=== PATIENT | female | born 1995 | race Caucasian/White ===

== ENCOUNTER 2016-08-29 07:37 | Emergency (ER) | payer BC ==
[2016-08-29] MEDS ORDERED: ONDANSETRON HCL 4 MG/2 ML VIAL ONE (08:46)
[2016-08-29] MEDS ORDERED: KETOROLAC TROMETHAMINE 30 MG/ML VIAL ONE (08:46)
[2016-08-29] MEDS ORDERED: ACETAMINOPHEN 325 MG TABLET PO ONE (09:00)
[2016-08-29 09:08] LABS: ALBUMIN 4.9 g/dL (3.5-5.0); ALKALINE PHOSPHATASE 88 U/L (38-126); ALT 38 U/L (9-52); AST 32 U/L (14-36); BILIRUBIN, DIRECT 0.2 mg/dL (0.0-0.4); BILIRUBIN, TOTAL 1.3 mg/dL (0.2-1.3); BLOOD UREA NITROGEN 14 mg/dL (7-17); CALCIUM 9.6 mg/dL (8.4-10.2); CHLORIDE 100 mmol/L (98-107); EST GLOMERULAR FILTRATION RATE > 60 mL/min; GLUCOSE 79 mg/dL (70-100); LIPASE 17 U/L (23-300); POTASSIUM 3.9 mmol/L (3.5-5.1); SODIUM 141 mmol/L (137-145); TOTAL PROTEIN 9.1 g/dL (6.3-8.2)
[2016-08-29 09:19] LABS: HEMATOCRIT 40.5 % (36.0-48.0); HEMOGLOBIN 14.3 g/dL (12.0-16.0); MEAN CELL VOLUME 94.6 fL (80.0-100.0); MEAN CORPUS. HGB CONCENTRATION 35.2 g/dL (32.0-36.0); MEAN CORPUSCULAR HEMOGLOBIN 33.3 pg (29.0-35.0); MEAN PLATELET VOLUME 8.8 fL (7.4-10.4); PLATELET COUNT 246 X 10^3uL (130-440); RED BLOOD COUNT 4.28 X 10^6uL (4.20-6.10); RED CELL DISTRIBUTION WIDTH 12.8 % (11.5-14.5); WHITE BLOOD COUNT 15.9 X 10^3uL (3.9-10.7)
[2016-08-29 09:29] LABS: BAND% (Manual) 8 % (0.0-1.0); LYMPHOCYTE % (Manual) 1 % (20.0-40.0); MONOCYTE % (Manual) 1 % (2.0-10.0); NEUTROPHIL % (Manual) 90 % (54.0-75.0); PLATELET ESTIMATE ADEQUATE
--- NOTE | 2016-08-29 13:06 | ER NURSING DOCUMENTATION ---
Nurse's Notes [facility] Name:Nory Boogie Age:21 yrs Sex:Female :1995 Arrival Date:08/29/2016 Time:07:37 Bed3 Private MD:Sergio Lemus Diagnosis:Viral Illness;Viral Pharyngitis Presentation: 08/29 07:49 Presenting complaint: Patient states: feeling achy around 8 pm with nausea and achy cb everywhere along with nasal drainage. Transition of care: Home. Notified ED Physician of patient's arrival and CC Dr. Yadav notified. 07:49 Method Of Arrival: Private Vehicle cb 07:49 Acuity: DAVID 3 cb Triage Assessment: 07:56 General: Appears ill, well groomed, Behavior is cooperative. Pain: Complains of pain in cb joints and back Pain currently is 7 out of 10 on a pain scale. EENT: Reports Sinus drainage swallowing nasal congestion. Neuro: Level of Consciousness is awake, alert, Oriented to person, place, time, event. Cardiovascular: Pulses are 2+ in right radial artery. Respiratory: Airway is patent Trachea midline Respiratory effort is even, unlabored, Respiratory pattern is regular, symmetrical. GI: Reports nausea, Parent/caregiver reports the patient having tolerance of food, tolerance of fluids, last night. : Denies burning with urination. Derm: Derm: Denies rash ot tick bites. Musculoskeletal: Reports pain in joints and back. Historical: - Allergies: No known drug Allergies; - Home Meds: 1. Remicade IV 2. azathioprine 50 mg oral tab 1 tab once daily 3. [place]-D 12 Hour Oral - PMHx: factor V Leiden ; CROHN'S; - Tetanus: < 10 years. - Ebola Screening: : Patient negative for fever greater than or equal to 101.5 degrees Fahrenheit, and additional compatible Ebola Virus Disease symptoms. Patient denies exposure to infectious person. Patient denies travel to an Ebola-affected area in the 21 days before illness onset. No symptoms or risks identified at this time. . - Immunization history: Flu Vaccine None. - Social history: Smoking status: Patient states was never smoker of tobacco. Screenin:03 Infectious Disease Risk None. Abuse screen: Denies threats or abuse. Denies injuries cb from another. Nutritional screening: No deficits noted. Assessment: 13:05 Respiratory: Airway is patent Trachea midline Respiratory effort is even, unlabored, lp Breath sounds are clear. 13:05 Derm: no rashes or tick bites. cb Vital Signs: 08:01 BP 134 / 94; Pulse 89; Resp 24; Temp 101.6; Pulse Ox 97% on R/A; Weight 49.44 kg; cb Height 4 ft. 11 in. (149.86 cm); Pain 7/10; 09:19 Pulse Ox 96% ; cb 09:32 BP 131 / 75 (auto/); cb 09:44 Pulse Ox 95% ; cb 09:45 BP 127 / 76 (auto/); cb 09:59 Pulse Ox 95% ; cb 10:00 BP 131 / 74 (auto/); cb 10:09 BP 131 / 74; Pulse 130; Resp 25; Temp 100.9(TE); Pulse Ox 93% on R/A; cb 10:14 Pulse 129 MON; Resp 30; Pulse Ox 93% ; cb 10:15 BP 122 / 70 (auto/); cb 10:29 Pulse 133 MON; Resp 35; Pulse Ox 94% ; cb 10:30 BP 124 / 70 (auto/); cb 10:44 Pulse 127 MON; Resp 26; Pulse Ox 100% ; cb 10:45 BP 122 / 74 (auto/); cb 10:59 Pulse 121 MON; Resp 24; Pulse Ox 97% ; cb 11:00 BP 129 / 77 (auto/); cb 11:14 Pulse 122 MON; Resp 28; Pulse Ox 96% ; cb 11:15 BP 129 / 82 (auto/); cb 11:30 BP 129 / 79 (auto/); cb 11:34 Pulse 120 MON; Resp 24; Pulse Ox 93% ; cb 12:21 BP 138 / 95 (auto/); cb 12:24 Pulse Ox 94% ; cb 08:01 Body Mass Index 22.02 (49.44 kg, 149.86 cm) cb ED Course: 07:38 Patient arrived in ED. ds 07:39 Sergio Lemus MD is Private Physician. ds 07:49 Amy Ayala, KARSTEN is Primary Nurse. cb 07:51 Triage completed. cb 08:25 Labs drawn. (by ED staff). Sent per order to lab. Inserted peripheral IV: 20 gauge in cb right antecubital area and blood collected. by Adrienne Zavala RN. 08:26 Daniel Yadav MD is Attending Physician. tl1 09:28 Sergio Lemus MD is Referral Physician. tl1 11:20 Assisted to bathroom. rh 13:05 Valuables Remains with patient. lp Administered Medications: 08:30 Drug: NS 0.9% 1000 ml; Route: IV; Rate: bolus; Site: right antecubital; lpr 10:00 Follow up: IV Status: Infusion continued; IV Intake: 1000ml cb 08:39 Drug: Zofran 4 mg; {Note: by Adrienne Foster RN.} Route: IVP; Infused Over: 2 mins; Site: lpr right antecubital; 11:27 Follow up: Response: Nausea is decreased cb 08:41 Drug: Toradol 15 mg; Route: IVP; Site: right antecubital; lpr 08:58 Follow up: by Adrienne Foster RN lpr 10:55 Drug: NS 0.9% 1000 ml; Route: IV; Rate: bolus; Site: right antecubital; cb 11:29 Follow up: IV Status: Completed infusion; IV Intake: 1000ml cb 11:06 CANCELLED (Other Intervention Used): Dilaudid 0.5 mg IVP once cb 12:02 Drug: Acetaminophen 975 mg; Route: PO; cb 14:00 Follow up: Response: Temperature is decreased cb Point of Care Testing: Urine Dip: 09:40 pH: 8.5; ; Specific [place]: 1.020; Ketones: Large; Glucose: Negative; Protein: lpr Positive (+); Leukocytes: Negative; Nitrite: Negative ; Blood: Negative; Bilirubin: Negative ; Urobilinogen: Normal Intake: 10:00 IV: 1000ml; Total: 1000ml. cb 11:29 IV: 1000ml; Total: 2000ml. cb Outcome: :29 Discharge ordered by . tl1 12:28 Discharged to home ambulatory, with family. cb 12:28 Condition: stable 12:28 Discharge instructions given to patient, Parent Instructed on discharge instructions, follow up and referral plans. Demonstrated understanding of instructions, medications, Prescriptions given X 2. 12:28 Discharge Assessment: Patient awake, alert and oriented x 3. No cognitive and/or cb functional deficits noted. Patient verbalized understanding of disposition instructions. 12:28 IV D/Rao cb 13:06 Patient left the ED. lp 06/14 09:29 Discharge F/U Call: Unable to reach: left voicemail: lp Signatures: Amy Ayala, RN RN Keke Mistry RN RN Trini Patino, Reg Reg Yanely Thompson RN RN lpr Leigh, Tom, MD MD tl1 Nikia Hohca [facility]
--- NOTE | 2016-08-31 13:06 | ER PHYSICIAN DOCUMENTATION ---
Physician Documentation [facility] Name:Nory Boogie Age:21 yrs Sex:Female :1995 Arrival Date:08/29/2016 Time:07:37 Bed3 Private MD:Sergio Lemus EDVicentaDaniel Disposition: 08/29 14:00 Chart complete. tl1 Disposition: 08/29/16 09:29 Discharged to Home/Self Care. Impression: Viral Illness, Viral Pharyngitis. - Condition is Good. - Discharge Instructions: PHARYNGITIS, Viral, VIRAL SYNDROME (Adult), Fever - FEVER CONTROL (Child). - Prescriptions for [place] 5- 325 mg Oral - take 1 tablet by ORAL route every 6 hours As needed; 10 tablet. Zofran 4 mg Oral Tablet - take 1 tablet by ORAL route every 12 hours; 6 tablet. - Work release form, Medical Reconciliation form form. - Follow up: Sergio Lemus MD; When: 4- 6 days; Reason: Recheck today's complaints, Continuance of care. - Problem is new. - Symptoms have improved. HPI: 07:45 This 21 yrs old Female presents to ER via Private Vehicle with complaints of tl1 Fever. 07:45 The patient reports fever, not measured (subjective), that was measured at 101.9 tl1 degrees Fahrenheit. Onset: The symptom(s)/episode began/occurred gradually, last night. She developed a sore throat 2 days ago and that has been bothering her since. Last night and this morning she is bothered by progressive malaise, fatigue, and generalized weakness and lassitude. No cough or dyspnea. No abdominal pain or diarrhea. No UTI symptoms.. Historical: - Allergies: No known drug Allergies; - Home Meds: 1. Remicade IV 2. azathioprine 50 mg oral tab 1 tab once daily 3. [place]-D 12 Hour Oral - PMHx: factor V Leiden ; CROHN'S; - Tetanus: < 10 years. - Ebola Screening: : Patient negative for fever greater than or equal to 101.5 degrees Fahrenheit, and additional compatible Ebola Virus Disease symptoms. Patient denies exposure to infectious person. Patient denies travel to an Ebola-affected area in the 21 days before illness onset. No symptoms or risks identified at this time. . - Immunization history: Flu Vaccine None. - Social history: Smoking status: Patient states was never smoker of tobacco. ROS: 08:00 Constitutional: Positive for body aches, chills, fatigue, fever, malaise, poor PO tl1 intake. 08:00 ENT: Positive for rhinorrhea, sinus congestion, sore throat, Negative for dental pain, difficulty swallowing, hoarseness. 08:00 Neck: Negative for swollen nodes. 08:00 Cardiovascular: Negative for chest pain, palpitations. 08:00 Respiratory: Negative for cough, hemoptysis, pleurisy, shortness of breath, sputum production, wheezing. 08:00 All other systems are negative. Exam: 08:00 Constitutional: The patient appears alert, awake, non-toxic, well developed, well tl1 hydrated, well groomed, well nourished, uncomfortable. 08:00 Head/face: Exam is negative for acute changes. 08:00 Eyes: Periorbital structures: appear normal, Pupils: equal, round, and reactive to light and accomodation, Conjunctiva: normal. 08:00 ENT: External ear(s): are unremarkable, Nose: is normal, Mouth: is normal, Oral mucosa: pink and intact, dry, Posterior pharynx: Tonsils: bilaterally enlarged, Uvula: midline, erythema, that is mild, exudate, is not appreciated, peritonsillar mass, . 08:00 Neck: ROM/movement: is normal, is supple, Lymph nodes: no appreciated lymphadenopathy. 08:00 Cardiovascular: Rate: tachycardic, Rhythm: regular, Heart sounds: normal, Edema: is not appreciated, JVD: is not appreciated. 08:00 Respiratory: Respirations: normal, Breath sounds: are normal. 08:00 Abdomen/GI: Inspection: abdomen appears normal, Palpation: abdomen is soft and non-tender. 08:00 Musculoskeletal/extremity: Exam is negative for acute changes. 08:00 Skin: Exam negative for acute changes. 08:00 Neuro: Exam negative for acute changes. Vital Signs: 08:01 BP 134 / 94; Pulse 89; Resp 24; Temp 101.6; Pulse Ox 97% on R/A; Weight 49.44 kg; cb Height 4 ft. 11 in. (149.86 cm); Pain 7/10; 09:19 Pulse Ox 96% ; cb 09:32 BP 131 / 75 (auto/); cb 09:44 Pulse Ox 95% ; cb 09:45 BP 127 / 76 (auto/); cb 09:59 Pulse Ox 95% ; cb 10:00 BP 131 / 74 (auto/); cb 10:09 BP 131 / 74; Pulse 130; Resp 25; Temp 100.9(TE); Pulse Ox 93% on R/A; cb 10:14 Pulse 129 MON; Resp 30; Pulse Ox 93% ; cb 10:15 BP 122 / 70 (auto/); cb 10:29 Pulse 133 MON; Resp 35; Pulse Ox 94% ; cb 10:30 BP 124 / 70 (auto/); cb 10:44 Pulse 127 MON; Resp 26; Pulse Ox 100% ; cb 10:45 BP 122 / 74 (auto/); cb 10:59 Pulse 121 MON; Resp 24; Pulse Ox 97% ; cb 11:00 BP 129 / 77 (auto/); cb 11:14 Pulse 122 MON; Resp 28; Pulse Ox 96% ; cb 11:15 BP 129 / 82 (auto/); cb 11:30 BP 129 / 79 (auto/); cb 11:34 Pulse 120 MON; Resp 24; Pulse Ox 93% ; cb 12:21 BP 138 / 95 (auto/); cb 12:24 Pulse Ox 94% ; cb 08:01 Body Mass Index 22.02 (49.44 kg, 149.86 cm) cb MDM: 08:15 Patient medically screened. tl1 10:00 Data reviewed: vital signs, nurses notes, lab test result(s), and as a result, I will tl1 discharge patient. Counseling: I had a detailed discussion with the patient and/or guardian regarding: the historical points, exam findings, and any diagnostic results supporting the discharge/admit diagnosis, lab results, the need for outpatient follow up, to return to the emergency department if symptoms worsen or persist or if there are any questions or concerns that arise at home. Medication response: The patient's symptoms have improved. ED course: She remained somewhat tachycardic even after fairly aggressive IV hydration, but she was feeling much better at the time of d/c.. 08/29 08:53 Order name: INFLUENZA A/B; Complete Time: 09:10 EDMS 08/29 09:08 Interpretation: Normal: INFLUENZA A/B INF A B NEGATIVE. 1 08/29 09:06 Order name: RAPID STREP SCRN CUL IF NEG; Complete Time: 09:10 EDMS 08/29 09:08 Interpretation: Normal: RAPID STREP SCRN CUL IF NEG NEGATIVE. 1 08/29 09:20 Order name: CBC WITHOUT A DIFFERENTIAL; Complete Time: 11:53 EDMS 08/29 09:26 Interpretation: Abnormal: WHITE BLOOD COUNT 15.9. 1 08/29 09:23 Order name: BASIC METABOLIC PANEL; Complete Time: 11:53 EDMS 08/29 09:23 Order name: HEPATIC PANEL; Complete Time: 11:53 EDMS 08/29 09:26 Interpretation: Normal Except: TOTAL PROTEIN 9.1. 1 08/29 09:23 Order name: LIPASE; Complete Time: 11:53 EDMS 08/29 09:26 Interpretation: Normal: LIPASE 17. 1 08/29 09:31 Order name: MANUAL DIFFERENTIAL; Complete Time: 11:53 EDMS 08/29 09:39 Order name: HCG, SERUM; Complete Time: 11:53 EDMS 08/29 08:27 Order name: NPO; Complete Time: 08:57 tl1 Dispensed Medications: 08:30 Drug: NS 0.9% 1000 ml; Route: IV; Rate: bolus; Site: right antecubital; lpr 10:00 Follow up: IV Status: Infusion continued; IV Intake: 1000ml cb 08:39 Drug: Zofran 4 mg; {Note: by Adrienne Foster RN.} Route: IVP; Infused Over: 2 mins; Site: lpr right antecubital; 11:27 Follow up: Response: Nausea is decreased cb 08:41 Drug: Toradol 15 mg; Route: IVP; Site: right antecubital; lpr 08:58 Follow up: by Adrienne Foster RN lpr 10:55 Drug: NS 0.9% 1000 ml; Route: IV; Rate: bolus; Site: right antecubital; cb 11:29 Follow up: IV Status: Completed infusion; IV Intake: 1000ml cb 11:06 CANCELLED (Other Intervention Used): Dilaudid 0.5 mg IVP once cb 12:02 Drug: Acetaminophen 975 mg; Route: PO; cb 14:00 Follow up: Response: Temperature is decreased cb Point of Care Testing: Urine Dip: 09:40 pH: 8.5; ; Specific [place]: 1.020; Ketones: Large; Glucose: Negative; Protein: lpr Positive (+); Leukocytes: Negative; Nitrite: Negative ; Blood: Negative; Bilirubin: Negative ; Urobilinogen: Normal Signatures: Amy Ayala, RN RN cb Keke García RN RN Yanely Metzger RN RN lpr Leigh, Tom, MD MD tl1
== END 2016-08-29 13:06 | disposition home or self-care (01) ==
LOC: ER 07:37
DX: J02.8 Acute pharyngitis due to other specified organisms (principal); B34.9 Viral infection, unspecified; E86.0 Dehydration; R00.0 Tachycardia, unspecified; M79.1 Myalgia; R53.81 Other malaise; R53.83 Other fatigue; Z79.899 Other long term (current) drug therapy
CPT/HCPCS: 80048; 80076; 83690; 84703; 85007; 85027; 86403; 87449; 96361; 96374; 96375; 99284; J1885; J2405

== ENCOUNTER 2016-08-30 11:03 | Observation (INO) | payer BC ==
[2016-08-30] MEDS ORDERED: HOME MEDICATION LIST NEEDED 1 EA EACH MC ONE (11:08)
[2016-08-30] MEDS ORDERED: IBUPROFEN SUSP 100 MG/5 ML CUP PO PRN (11:13)
[2016-08-30] MEDS ORDERED: ACETAMINOPHEN 325 MG TABLET PO PRN (11:14)
[2016-08-30] MEDS ORDERED: AZITHROMYCIN 250 MG TABLET PO ONE ×3 (11:15→12:21)
[2016-08-30] MEDS ORDERED: KETOROLAC TROMETHAMINE 30 MG/ML VIAL IV ONE (11:16)
[2016-08-30] MEDS ORDERED: KETOROLAC TROMETHAMINE 30 MG/ML VIAL ONE (11:43)
[2016-08-30] MEDS ORDERED: NORMAL SALINE FLUSH ONE (11:44)
[2016-08-30] MEDS ORDERED: NORMAL SALINE FLUSH 50 ML ONE (11:44)
[2016-08-30] MEDS ORDERED: POTASSIUM CHLORIDE/NS 20 MEQ/1,000 ML BAG IV SCH (12:00)
[2016-08-30] MEDS ORDERED: cefTRIAXone SODIUM 1,000 MG in NORMAL SALINE MINI-BAG+ 100 ML IV SCH (12:00)
[2016-08-30] MEDS ORDERED: ONDANSETRON ODT 4 MG TAB.RAPDIS ONE (12:20)
[2016-08-30] MEDS ORDERED: ENOXAPARIN SODIUM 40 MG/0.4 ML SYR SUBCUT SCH (12:30)
--- NOTE | 2016-08-30 13:27 | CT REPORT ---
HISTORY: Tachycardia. Chest pain. Factor V 5 Leiden. COMPARISON: None. TECHNIQUE: This examination was performed using automated exposure control, adjustment of mA or kV according to patient size, and/or use of iterative reconstruction technique. Axial CT imaging from the thoracic i nlet through the upper abdomen following administration of IV contrast during peak opacification of t he pulmonary arteries, multiplanar reformatted and 3-D images are evaluated. 80ml Isovue 300 contrast. FINDINGS: There is dense consolidation of the posterior superior right lower lobe. There is also dense consolid ation of the posterior inferior right middle lobe. Note is made of aberrant right subclavian artery origin. Right subclavian artery arises from the dist al aortic arch and swings behind the esophagus to continue as the right subclavian artery. There are no pleural effusions. There is good opacification of the pulmonary arterial tree to segmental branches. No evidence of acut e pulmonary emboli. Patient has evidence of a moderate reverse S thoracic scoliosis. The liver appears to be enlarged with possible fatty infiltration. IMPRESSION: 1. Dense consolidation of the right lower lobe and right middle lobe consistent with infectious pneu monia. Consider aspiration pneumonia. 2. Negative for pulmonary emboli. 3. Aberrant right subclavian artery which originates from the distal aortic arch and travels behind the esophagus to continue as the right subclavian artery. 4. Moderate reverse S thoracic scoliosis. 5. Probable enlarged liver with fatty infiltration. Final Electronic Signature: This report was electronically signed by Sergo Clement MD, FACR on 1:24 PM. [email or web address] /
[2016-08-30] MEDS ORDERED: ONDANSETRON HCL 4 MG/2 ML VIAL ONE ×2 (13:39→18:32)
[2016-08-30 13:42] LABS: URINE MUCUS NONE SEEN (Up to 25%); URINE RBC NONE SEEN (0-5/hpf); URINE WBC NONE SEEN (0-4/hpf)
[2016-08-30 13:47] LABS: URINE APPEARANCE CLEAR; URINE COLOR DARK YELLOW; URINE LEUKOCYTE ESTERASE NEGATIVE (NEGATIVE); URINE NITRITE NEGATIVE (NEGATIVE)
[2016-08-30 13:48] LABS: URINE BACTERIA NONE SEEN (<10/hpf); URINE BILIRUBIN 0.5 mg/100ml (1+) (NEGATIVE); URINE BLOOD TRACE (NEGATIVE); URINE GLUCOSE NORMAL (NEGATIVE); URINE KETONE 50mg/dL (2+) (NEGATIVE); URINE PH 6.5 (5-7); URINE PROTEIN 30mg/dL (1+) (NEG - TRACE); URINE UROBILINOGEN 0.2mg/dL (Normal) (NEG-1mg/dL)
--- NOTE | 2016-08-30 16:02 | HISTORY & PHYSICAL ---
DATE OF ADMISSION: 08/30/16 ATTENDING PHYSICIAN: Connie Marshall MD CHIEF COMPLAINT: Fever, tachycardia. 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 She was felt to have a viral syndrome and was given IV fluids and was discharged to home. She was noted to have a white count of 15,100 at that time. She was returned to the clinic today by her mother who accompanies her with complaints of ongoing illness and fever and a severe headache. Patient has an underlying very complicated medical history of Crohns disease since age 11 and is Factor V Leiden positive. She is immunocompromised taking Remicade and taking Azathioprine. In the clinic, patient was noted to have continued tachycardia in the 130 range , and had been given IV fluids in the ER with a normal heart rate and subsequently developed a high heart rate. Patient is also complaining of central chest pain with a deep breath which is mild but no shortness of breath. She has had no leg swelling. Patient has not had any mosquito bites or tick bites. 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 She has some general arthralgias. She has not had any dysuria. She denies any diarrhea. She has had a sore throat which she reports as mild today. In the Emergency Room strep screen was negative as was influenza swab. Her CBC differential was 90% neutrophils, 8% bands, 1% lymphocytes, 1% monocytes. We also ordered a monospot today, and that was negative. Given her complicated medical history and the appearance of a patient who is looking quite ill and complaining of a severe headache, I felt it safer to admit her for observation. A D-Dimer in the clinic setting was only 236 but my suspicion for potential pulmonary embolism is high and I have decided to go ahead and order a CTA of the chest. C-reactive protein done in the clinic was over 90. EKG did confirm sinus tachycardia with an otherwise normal QRS. ALLERGIES: None known. MEDICATIONS AT HOME Azathioprine 50 mg daily. Remicade infusion monthly. Ibuprofen as needed for headaches. [place] ER 180 mg daily as needed for headaches. PAST MEDICAL HISTORY 1. Patient was a normal term baby without severe childhood illness until she developed Crohns at age 11. She has not had any surgeries for her Crohns and has only been hospitalized once with a flare. 2. Seasonal allergies. 3. Seems to have recurrent headaches, which has not been officially diagnosed as migraine headaches. 4. Menstrual cycles are reported as regular and normal without particular problems and last menstrual period was approximately 3 weeks ago. SOCIAL HISTORY: She is single. She lives at home. She has 2 sisters who are twins. She is a nonsmoker, nondrinker. Denies any drug use and is not sexually active. FAMILY HISTORY: Mother has hypertension for the past year. Father is healthy. Her twin sisters are very healthy in the family. There is Crohns in a maternal uncle and a cousin and Factor V Leiden is positive in her maternal grandmother and maternal aunt. Her mother has not been tested. REVIEW OF SYSTEMS: Positive for severe headaches, some nausea, some fevers and chills, arthralgias, sore throat. Chest pain as noted above without particular shortness of breath. No abdominal pain. No diarrhea. No hematochezia or melena. Denies any leg swelling. She is not particularly weak. She is fatigued. PHYSICAL EXAMINATION VITAL SIGNS: Temperature 36.9 after Ibuprofen. Blood pressure 134/106, pulse 120 , respiratory rate 18. O2 saturation 93% on room air. GENERAL: Tearful and appears unwell. HEENT: Extraocular movements are intact. Pupils are equal, round and reactive to light. Sclera are anicteric. Oropharynx shows no lesions. Posterior pharyngeal area is swollen and mildly erythematous without exudate. NECK: No adenopathy. No jugular venous distention. No bruits. She has full range of motion without tenderness in flexion and extension and without stiffness. LUNGS: Clear bilaterally. CARDIOVASCULAR: Regular but tachycardic. PMI nondisplaced. No murmurs, rubs or gallops appreciated. ABDOMEN: Soft. Bowel sounds are quiet. Nontender. No organomegaly. No masses noted. EXTREMITIES: Calves are soft, nontender. Dorsalis pedis pulses are 2+. Tibialis posterior pulses are 2+. Negative Homans bilaterally. NEUROLOGIC: Well oriented. Cranial nerves are grossly intact. Motor strength is 5/5. Deep tendon reflexes 2+ and symmetric. Gait is normal. DATA: CBC today shows a white count 17,300 with left shift of 91%, lymphocytes at 1.2%, platelet count is normal at 228,000. Hemoglobin 13.4, hematocrit 38.7 with normal indices. D-Dimer was 236 as noted. Monospot was negative. CRP was greater than 90. In the Emergency Room yesterday, she had a hepatic panel with a high total protein of 9.1 but otherwise normal other than a low lipase at 17. test yesterday was negative. Rapid strep screen negative. Influenza screen negative. ASSESSMENT: Fever, tachycardia, chest pain. Also with sore throat, malaise and arthralgias. A viral syndrome is suggested by her symptoms and her lack of other findings as well as her CBC profile. However, the patient is at considerable risk with her immunosuppressive drugs and her underlying Crohns. She does not appear to be having a Crohns flare. Other concerns are her Factor V Leiden positivity and her elevated risk for pulmonary embolism, particularly given her complaint of chest pain and her findings of tachycardia. PLAN 1. Cover her with Rocephin and Azithromycin for upper respiratory type infections or atypical bacteria and to go ahead with a CTA of the chest in spite of the normal range D-Dimer just to make sure that she does not have a pulmonary embolism. Additionally, we will give her Lovenox prophylaxis and continue with gentle IV hydration. 2. Crohns disease. Patient does not appear to be having a flare and we will continue her medication of Azithromycin 50 mg. She recently had her Remicade infusion and is not yet due for that. We will monitor for signs of a Crohns flare. 3. Deep vein thrombosis prophylaxis. Will be given as noted above with Lovenox given her high risk profile. [facility]
[2016-08-30 17:21] VITALS: TEMP 98.3
[2016-08-30] MEDS ORDERED: PIPERACILLIN /TAZO 3.375 GM in NORMAL SALINE MINI-BAG+ 100 ML IV ONE (17:24)
[2016-08-30] MEDS ORDERED: VANCOMYCIN HCL 1,000 MG in NORMAL SALINE ADDVANTAGE 250 ML IV ONE (17:41)
[2016-08-30] MEDS ORDERED: PIPERACILLIN /TAZO 3.375 GM/10 ML VIAL IV ONE (17:42)
[2016-08-30] MEDS ORDERED: NORMAL SALINE MINI-BAG+ 100 ML IV ONE (17:44)
[2016-08-30] MEDS ORDERED: NORMAL SALINE 1,000 ML IV ONE ×2 (17:48→18:46)
[2016-08-30] MEDS ORDERED: VANCOMYCIN HCL 1,000 MG/20 ML VIAL ONE (17:52)
--- NOTE | 2016-08-30 17:52 | DC SUMMARY: IM Note ---
Discharge Summary: IM/Peds Provider: Date of Admission: 08/30/16 Admitting Provider: CLARISSA MARION MD Attending Provider: CLARISSA MARION MD Discharging Provider: CLARISSA MARION MD Primary Care Provider: Discharge Date: 08/30/16 - Diagnosis (1) Sepsis Status: Acute Qualifiers: Sepsis type: sepsis due to unspecified organism Qualified Code(s): A41.9 - Sepsis, unspecified organism Hospital Course: Patient was admitted this morning with findings of pneumonia, and was doing well , but started to deteriorate around 4 pm today. She has developed increasing tachycardia, diffuse arthralgia, neck stiffness, spinal pain and unremitting anterior chest wall pain. She was given IV Zosyn and Vancomycin, 1L bolus of NS and rate of IVF increased to 200ml. She has also been given Dilaudid for unremitting chest pain. EKG is showing increasing sinus tachycardia. Since she has exhibited very concerning signs for sepsis, she is being transferred by helicopter to ICU care. - Time Spent with Patient Total time spent providing and/or coordinating discharge services: Time with patient DS: Greater than 30 minutes Discharge Disposition: [facility] Discharge Summary Data - Medication History Medication History: Home Medications Azathioprine [Azathioprine*] 50 mg PO DAILY 08/30/16 Fexofenadine HCl [Fexofenadine HCl*] 180 mg PO DAILY 08/30/16 Hydrocodone/Acetaminophen [[place] 5-325 Tablet] 1 tab PO Q6H PRN 08/30/16 Ibuprofen [Ibuprofen*] 600 mg PO DAILY PRN 08/30/16 Ondansetron HCl [Zofran] 4 mg PO Q12H 08/30/16 inFLIXimab [Remicade*] 250 mg IV DIRECTED 08/30/16 Inpatient Medications 08/30/16 11:13 Ibuprofen Susp [Motrin Susp] 400 mg PO Q8H PRN 08/30/16 11:14 Acetaminophen [Tylenol] 650 mg PO Q6H PRN 08/30/16 12:00 Potassium Chloride/Ns [KCl 20 Meq in Ns 1L] 20 meq in 1,000 ml IV CONT cefTRIAXone SODIUM [Rocephin] 1,000 mg Normal Saline Mini-Bag+ [Sodium Chloride 100 ml Mini-Bag Plus] 100 ml IV Q24H 08/30/16 12:30 Enoxaparin Sodium [Lovenox] 40 mg SUBCUT DAILY 08/30/16 17:24 Piperacillin /Tazo [Zosyn] 3.375 gm Normal Saline Mini-Bag+ [Sodium Chloride 100 ml Mini-Bag Plus] 100 ml IV ONCE 08/30/16 17:25 hydroMORPHone HCL [dilaUDID] 0.5 mg IV ONCE ONE Procedures and tests throughout hospitalization: Completed Lab Orders 08/30/16 13:30 UA W/ MICRO -CULTURE IF IND [URINE] Urgent Completed Imaging Orders 08/30/16 12:29 ct [CAT SCAN; CHEST ANGIO [id number]] [CT] Urgent Pending Orders 08/30/16 11:08 Admit: Observation Routine Activity: Bathroom Privileges . Assess pulse oximetry Once Intake and Output QSHIFT I&O Obtain weight 0600 Resuscitation Status Routine Vital Signs ROUTINE VITALS (Q4H) 08/30/16 11:12 BLOOD CULTURE [BC] Urgent 08/30/16 11:13 Ibuprofen Susp [Motrin Susp] 400 mg PO Q8H PRN 08/30/16 11:14 Acetaminophen [Tylenol] 650 mg PO Q6H PRN 08/30/16 12:00 Potassium Chloride/Ns [KCl 20 Meq in Ns 1L] 20 meq in 1,000 ml IV CONT cefTRIAXone SODIUM [Rocephin] 1,000 mg Normal Saline Mini-Bag+ [Sodium Chloride 100 ml Mini-Bag Plus] 100 ml IV Q24H 08/30/16 12:30 Enoxaparin Sodium [Lovenox] 40 mg SUBCUT DAILY 08/30/16 17:24 Piperacillin /Tazo [Zosyn] 3.375 gm Normal Saline Mini-Bag+ [Sodium Chloride 100 ml Mini-Bag Plus] 100 ml IV ONCE 08/30/16 17:25 hydroMORPHone HCL [dilaUDID] 0.5 mg IV ONCE ONE 08/30/16 Lunch Regular [DIET] 08/31/16 05:00 BASIC METABOLIC PANEL [CHEM] AMDRAW CBC AUTO DIF, MDIF/RMOR IF IND [HEM] AMDRAW HEPATIC PANEL [CHEM] AMDRAW Labs on day of discharge: Labs from last 24 hours 08/30/16 13:30 Urine Color Dark yellow A Urine Appearance Clear Urine pH 6.5 Ur Specific [place] 1.010 Urine Protein 30mg/dl (1+) A Urine Ketones 50mg/dl (2+) A Urine Blood Trace A Urine Nitrate Negative Urine Bilirubin 0.5 mg/100ml (1+) A Urine Urobilinogen 0.2mg/dl (normal) Ur Leukocyte Esterase Negative Urine RBC None seen Urine WBC None seen Ur Squamous Epith Cells 5-10/hpf Urine Bacteria None seen Urine Mucus None seen Urine Glucose Normal IM: Discharge Physical Exam - I&O/Vital Signs I&O: Intake & Output 08/30/16 08/30/16 08/30/16 05:59 13:59 21:59 Intake Total 10 Balance 10 Weight 50.802 kg Intake: Oral 10 Other: Stool Characteristics Formed Hard Voiding Method Toilet Vital Signs: Last Vital Signs Temp 36.8 C 08/30/16 17:20 Pulse 125 H 08/30/16 17:20 Resp 20 08/30/16 15:00 BP 126/82 08/30/16 17:20 Pulse Ox 89 L 08/30/16 17:20 Oxygen Flow Rate 1 Oxygen Delivery Method Nasal Cannula
[2016-08-30 20:49] VITALS: RESP 24
[2016-08-30 20:50] VITALS: BP 113/78; PULSE 134; O2SAT 97
== END 2016-08-30 18:09 | disposition home or self-care (01) ==
LOC: IN 11:20
PROVIDERS: ADMIT Internal Medicine; ATTEND Internal Medicine
DX: R50.9 Fever, unspecified (principal); R51 Headache; R07.9 Chest pain, unspecified; K50.90 Crohn's disease, unspecified, without complications; D68.4 Acquired coagulation factor deficiency; R00.0 Tachycardia, unspecified; M25.50 Pain in unspecified joint
CPT/HCPCS: 36415; 71275; 81001; 87040; 87077; 96361; 96365; 96367; 96375; G0378; G0379; J0696; J1170; J1650; J1885; J2405; J2543; J3370; J3480; J7030; Q0144